=== PATIENT | female | born 1970 | race Caucasian/White ===

== ENCOUNTER 2018-06-28 10:54 | Day surgery (SDC) | payer BC ==
[2018-06-28] MEDS ORDERED: Fentanyl 100 MCG/2 ML VIAL ONE (11:29)
[2018-06-28] MEDS ORDERED: PROPOFOL 200 MG/20 ML VIAL ONE (12:15)
[2018-06-28] MEDS ORDERED: Lidocaine 1% PF 5 ML VIAL ONE (12:15)
[2018-06-28] MEDS ORDERED: Dexamethasone 20 MG/5 ML VIAL ONE (12:15)
[2018-06-28] MEDS ORDERED: Succinylcholine Chloride 20 MG/ML 10 ml SYRINGE FS ONE (12:15)
[2018-06-28] MEDS ORDERED: Ondansetron PF 4 MG/2 ML Vial ONE (12:15)
--- NOTE | 2018-06-28 12:57 | OP ---
DATE OF PROCEDURE: 06/28/2018 PROCEDURE PERFORMED: Esophagogastroduodenoscopy with biopsy and removal of foreign body. PREOPERATIVE DIAGNOSIS: Esophageal food impaction and foreign body. DESCRIPTION OF PROCEDURE: Informed consent was obtained from the patient. She was sedated with general anesthesia. The bite block was placed and the endoscope was advanced to the distal esophagus, where a large piece of pork loin was encountered. This was grasped with a snare and pulled out through the patient's mouth. The scope was reinserted. There was a stricture with some circumferential inflammation around the GE junction. This was not dilated today. Esophageal biopsies were taken from the distal and proximal esophagus to rule out eosinophilic esophagitis; however, typical findings of the eosinophilic esophagitis were otherwise not seen. The stomach was normal including retroflex views. The pylorus and first and second portions of the duodenum were normal. IMPRESSION: 1. Esophageal meat impaction removed with a snare through the patient's mouth. 2. Esophageal stricture, which was inflamed circumferentially and not dilated today. This was in the distal esophagus of the GE junction. Esophageal biopsies were obtained to rule out eosinophilic esophagitis. 3. Otherwise, normal esophagogastroduodenoscopy. RECOMMENDATIONS: 1. Proton pump inhibitor daily. Start Prilosec [id number] daily. 2. Repeat EGD in 2 to 4 weeks to dilate the esophageal stricture. 3. Await histopathology. Job ID: [id number]
--- NOTE | 2018-06-28 12:59 | HP ---
CHIEF COMPLAINT: Food stuck in my esophagus. HISTORY OF PRESENT ILLNESS: Ms. Kenney is a 47-year-old woman, who presented to [facility] ER last night with pork loin that stuck in her esophagus after the 1st bite. She was given glucagon and fluids, but the meat bolus did not pass. She drank a little bit of water and felt like it trickled around it, but that the meat bolus still remained stuck. She was transferred to [place] as an outpatient for urgent EGD. She does get heartburn a couple of times per week, more during the day after meals. She has had intermittent dysphagia a couple of times per year over the last 4 years around twice per year. Usually, she has to vomit the bolus back up. She has had no abdominal pain, diarrhea, constipation, or blood in the stool. She had an anal fissure surgery by Dr. Baca around 3 years ago. Colonoscopy was done at that time, which was normal per her report. PAST MEDICAL HISTORY: Hypertension. PAST SURGICAL HISTORY: 1. Jaw surgery. 2. x2. 3. Anal fissure repair. 4. Colonoscopy. FAMILY HISTORY: Negative for GI malignancy. SOCIAL HISTORY: She has 3 drinks of alcohol per day. No smoking. No drugs. ALLERGIES: NO KNOWN DRUG ALLERGIES. MEDICATIONS AT HOME: Nifedipine. REVIEW OF SYSTEMS: Negative x10 systems reviewed except as stated in history of present illness. PHYSICAL EXAMINATION: GENERAL: She is in no acute distress. Alert and oriented x3. HEENT: Eyes have no scleral icterus. Oropharynx is clear without lesions. NECK: No cervical or supraclavicular lymphadenopathy. LUNGS: Clear to auscultation bilaterally. HEART: Regular rate and rhythm without murmur. ABDOMEN: Soft, nontender, and nondistended. Bowel sounds are present. EXTREMITIES: No lower extremity edema. IMPRESSION: 1. Esophageal food impaction. 2. Intermittent dysphagia. 3. Gastroesophageal reflux disease. RECOMMENDATIONS: EGD with removal of foreign body urgently today. Job ID: [id number]
== END 2018-06-28 13:50 | disposition home or self-care (01) ==
LOC: SDC 10:54
PROVIDERS: ATTEND Internal Medicine Gastroenterology
PROC: 0DC58ZZ Extirpation of Matter from Esophagus, Via Natural or Artificial Opening Endoscopic (ICD-10-PCS; principal; 2018-06-28)
PROC: 0DB58ZX Excision of Esophagus, Via Natural or Artificial Opening Endoscopic, Diagnostic (ICD-10-PCS; principal; 2018-06-28)
DX: T18.128A Food in esophagus causing other injury, initial encounter (principal); K22.2 Esophageal obstruction; K21.9 Gastro-esophageal reflux disease without esophagitis; I10 Essential (primary) hypertension; Z98.890 Other specified postprocedural states; Z79.899 Other long term (current) drug therapy
CPT/HCPCS: 88305; 88312; 88313; J1100; J2001; J2405; J2704; J3010